=== PATIENT | female | born 1960 | race Caucasian/White ===

== ENCOUNTER 2018-03-08 06:19 | Day surgery (SDC) | payer BC, OTHER ==
[~2018-03-08 06:19] MED LIST: Acetaminophen TAB* 325 MG PO PRN; Buffered Lidocaine 0.9% SYRIN* 5 ML/SYR SYRINGE INTRADERM ONE; mitoMYcin 0.2 MG (0.02%) in Sterile Water for Inj* 1 ML OPHTHALMIC SCH
[2018-03-08] MEDS ORDERED: fentaNYL* 50 MCG/ML 2 ML VIAL (100 MCG VIAL) ONE (07:16)
[2018-03-08] MEDS ORDERED: Midazolam* 1 MG/ML 2 ML VIAL (2 MG) ONE (07:16)
[2018-03-08] MEDS ORDERED: Ondansetron INJ* 2 MG/ML VIAL ONE (07:53)
[2018-03-08 08:07] VITALS: BP 125/68
[2018-03-08] MEDS ORDERED: Neomycin/Polymy/Dex OPTH.SUSP* MAXITROL 0.1% 5 ML ONE (11:14)
[2018-03-08] MEDS ORDERED: Povidone Iodine 5% OPTH* 30 ML BTL ONE (11:14)
[2018-03-08] MEDS ORDERED: Lidocaine 1%* 5 ML VIAL ONE (11:14)
[2018-03-08] MEDS ORDERED: Proparacaine 0.5% OPHTH.SOL* 15 ML BTL ONE (11:14)
[2018-03-08] MEDS ORDERED: Lidocaine 2% EPI 1:200000 MPF*10-20 ML VIAL ONE (11:14)
--- NOTE | 2018-03-08 13:06 | OP ---
DATE OF OPERATION: 03/08/[address] [facility] DATE OF : 60 SURGEON: Ruben Tapia MD. PRE-OP DIAGNOSES: Uncontrolled glaucoma, right eye. POST-OP DIAGNOSES: Uncontrolled glaucoma, right eye. OPERATIVE PROCEDURE: Insertion of XEN stent right ANESTHESIA: Local with MAC. COMPLICATIONS: None. DESCRIPTION OF PROCEDURE: The patient was prepped and draped in the usual sterile fashion. Topical 2% lidocaine administered with epi. Nasal lid speculum placed. Paracentesis made at the 10 o'clock position with 75 blade, anterior chamber irrigated with 1% non-preserved intracameral lidocaine and instilled with DisCoVisc. A 1.6 mm keratome was used to make an incision in the cornea at the 7 o'clock position. The XEN stent placed at 1 o'clock with no difficulty with its item repair manager. Miochol irrigated into the anterior chamber. The anterior chamber irrigated with balanced salt solution, good bleb developed. Mitomycin-C 0.2 mg/mL, 0.1 mL injected near the tip of the XEN stent. Topical Maxitrol drops were given. [id number]/[facility] #: [id number] [facility]
== END 2018-03-08 08:13 | disposition home or self-care (01) ==
LOC: OREAST 06:19
PROVIDERS: ATTEND Specialist
DX: H40.1133 Primary open-angle glaucoma, bilateral, severe stage (principal); I10 Essential (primary) hypertension; E78.5 Hyperlipidemia, unspecified; E03.9 Hypothyroidism, unspecified; R00.0 Tachycardia, unspecified; M62.838 Other muscle spasm
CPT/HCPCS: A9270-GY; C1725; J2250; J2405; J3010; J9280

== ENCOUNTER 2018-05-24 07:01 | Day surgery (SDC) | payer BC, OTHER ==
[~2018-05-24 07:01] MED LIST changes: -Buffered Lidocaine 0.9% SYRIN* 5 ML/SYR SYRINGE INTRADERM ONE; +Buffered Lidocaine 1% SYRIN* 1 ML/SYRINGE INTRADERM ONE; -mitoMYcin 0.2 MG (0.02%) in Sterile Water for Inj* 1 ML OPHTHALMIC SCH; +mitoMYcin PWD* 0.2 MG in Sterile Water for Inj* 1 ML OPHTHALMIC SCH
[2018-05-24] MEDS ORDERED: Midazolam* 1 MG/ML 2 ML VIAL (2 MG) ONE (08:09)
[2018-05-24] MEDS ORDERED: Ondansetron INJ* 2 MG/ML VIAL ONE (08:18)
[2018-05-24 09:01] VITALS: BP 131/80
--- NOTE | 2018-05-24 09:05 | OP ---
OPERATIVE REPORT: DATE OF OPERATION: 05/24/18 DATE OF : 60 SURGEON: Ruben Tapia MD ANESTHESIA: Local MAC. PRE-OP DIAGNOSIS: Glaucoma, left eye. POST-OP DIAGNOSIS: Glaucoma, left eye. OPERATIVE PROCEDURE: XEN implant, left eye. COMPLICATIONS: None. DESCRIPTION OF PROCEDURE: The patient was prepped and draped in the usual sterile fashion. Lid spec ulum was placed to the left eye. Topical 2% lidocaine with epinephrine given. A paracentesis was ma de with 75 blade at the 1 o'clock position. Anterior chamber irrigated with 1% non-preservative intr acameral lidocaine followed by Provisc. A clear corneal 1.8 mm incision was made at the 5 o'clock po sition. The XEN implant placed without difficulty using its shooter at the 11 o'clock position. Lithia chol was instilled into the anterior chamber to constrict the pupil and then the anterior chamber irr igated with balanced salt solution. Mitomycin-C 0.2 mg/mL 0.1 mL was injected near the opening of th e XEN implant subconjunctivally. Topical Maxitrol drops were given. [id number]/[facility] #: [id number]
[2018-05-24] MEDS ORDERED: Neomycin/Polymy/Dex OPTH.SUSP* MAXITROL 0.1% 5 ML ONE (09:45)
[2018-05-24] MEDS ORDERED: Povidone Iodine 5% OPTH* 30 ML BTL ONE (09:45)
[2018-05-24] MEDS ORDERED: Lidocaine 2% EPI 1:200000 MPF*10-20 ML VIAL ONE (09:45)
[2018-05-24] MEDS ORDERED: Proparacaine 0.5% OPHTH.SOL* 15 ML BTL ONE (09:45)
[2018-05-24] MEDS ORDERED: Lidocaine 1%* 5 ML VIAL ONE (09:45)
[2018-05-24] MEDS ORDERED: Acetylcholine 1:100 OPTH* OPHTH.SOLN ONE (10:46)
== END 2018-05-24 09:11 | disposition home or self-care (01) ==
LOC: OREAST 07:01
PROVIDERS: ATTEND Specialist
DX: H40.1123 Primary open-angle glaucoma, left eye, severe stage (principal); H25.13 Age-related nuclear cataract, bilateral; J45.909 Unspecified asthma, uncomplicated; E78.00 Pure hypercholesterolemia, unspecified; I48.91 Unspecified atrial fibrillation; E03.9 Hypothyroidism, unspecified; Z88.0 Allergy status to penicillin; Z88.8 Allergy status to other drugs, medicaments and biological substances
CPT/HCPCS: A9270-GY; C1725; J2250; J2405; J9280